=== PATIENT | male | born 1970 | race Caucasian/White ===

== ENCOUNTER 2022-09-27 06:12 | Emergency (ER) | payer OTHER, SELFPAY ==
[2022-09-27 06:24] VITALS: BP 119/71; PULSE 72; RESP 16; TEMP 36.3; O2SAT 97; BMI 29.0
== END 2022-09-27 09:16 | disposition left against medical advice (07) ==
PROVIDERS: Emergency Provider Emergency Medicine
DX: R07.81 Pleurodynia (principal)
CPT/HCPCS: 99281

== ENCOUNTER → 2023-12-09 13:49 | Outpatient (BNVA) | payer SELFPAY | PROVIDERS: Visit Provider Physician Assistant | DX: Z02.79 Encounter for issue of other medical certificate (principal) ==